=== PATIENT | female | born 1970 | race Two or more races ===

== ENCOUNTER 2018-03-18 22:51 | Emergency (ER) | payer OTHER ==
[~2018-03-18] VITALS: Ht 160 cm; Wt 82.6 kg
[~2018-03-18 22:51] MED LIST: ACETAMINOPHEN500 M2 PO; CATAFLAM50 MG PO; CIPRO500 MG PO; ENALAPRIL MALEA20 MG PO; FLEXERIL5 MG PO; METFORMIN HCL500 MG PO; PREDNISONE10 MG PO
== END 2018-03-19 06:32 | disposition designated cancer center or children's hospital (05) ==
LOC: ER 22:51 → CPU-OBS 23:33
DX: I21.29 ST elevation (STEMI) myocardial infarction involving other sites (principal); R07.89 Other chest pain; I10 Essential (primary) hypertension
CPT/HCPCS: G0378; G0379; 93005

== ENCOUNTER 2022-12-16 08:00 | Outpatient (CLI) | payer OTHER | END 2022-12-16 08:03 | disposition home or self-care (01) | LOC: SONOGRAMA 08:00 | PROVIDERS: ATTEND Pathology Anatomic Pathology & Clinical Pathology | DX: D44.0 Neoplasm of uncertain behavior of thyroid gland (principal); E07.9 Disorder of thyroid, unspecified ==

== ENCOUNTER 2024-01-19 15:28 | Emergency (ER) | payer OTHER ==
[~2024-01-19] VITALS: Ht 160 cm; Wt 79.4 kg
[2024-01-19] MEDS ORDERED: NORFLEX100MG PO (22:00)
== END 2024-01-19 22:41 | disposition home or self-care (01) ==
LOC: ER 15:30
DX: T14.8XXA Other injury of unspecified body region, initial encounter (principal); V49.9XXA Car occupant (driver) (passenger) injured in unspecified traffic accident, initial encounter; Y93.89 Activity, other specified; Y92.413 State road as the place of occurrence of the external cause; Y99.9 Unspecified external cause status; M62.838 Other muscle spasm; Z88.2 Allergy status to sulfonamides; M51.36 Other intervertebral disc degeneration, lumbar region

== ENCOUNTER 2024-05-17 14:25 | Outpatient (CLI) | payer OTHER ==
[~2024-05-17 14:25] MED LIST changes: +NORFLEX100MG PO
== END 2024-05-17 14:27 | disposition home or self-care (01) ==
LOC: SONOGRAMA 14:25
PROVIDERS: ATTEND Pathology Anatomic Pathology
DX: E04.2 Nontoxic multinodular goiter (principal); D34 Benign neoplasm of thyroid gland; E07.89 Other specified disorders of thyroid